=== PATIENT | female | born 1990 | race African-American/Black ===

== ENCOUNTER 2018-01-17 20:53 | Emergency (ER) | payer OTHER, MEDICAID ==
[~2018-01-17] VITALS: Ht 175.3 cm; Wt 66.7 kg
[~2018-01-17 20:53] MED LIST: BACTRIM DS TAB1 EACH PO; NOHOMEMEDICATIONS; NORCO 5-325 TA1 EACH PO
[2018-01-17] MEDS ORDERED: PREDNISONE 10 M10 MG PO (21:17)
[2018-01-17 21:25] VITALS: BP 135/71
== END 2018-01-17 21:52 | disposition home or self-care (01) ==
LOC: M.ERS 20:53
DX: R21 Rash and other nonspecific skin eruption (principal)